=== PATIENT | male | born 1995 | race Caucasian/White ===

== ENCOUNTER 2017-12-07 12:31 | Emergency (ER) | payer OTHER ==
[~2017-12-07] VITALS: Ht 185.4 cm; Wt 98.9 kg
[~2017-12-07 12:31] MED LIST: CLARITIN10 M2; CLARITIN10 MG PO; HYDROCODON-ACE1 EAC7 PO; HYDROCODON-ACE1 EAC8 PO; IBUPROFEN 800800 M1 PO; ROBAXIN 750 MG750 M1 PO
[2017-12-07 13:12] LABS: ABSOLUTE BASOPHILS 0.1 thou/uL (0.0-0.2); ABSOLUTE EOSINOPHILS 0.1 thou/uL (0.0-0.7); ABSOLUTE LYMPHOCYTES 1.8 thou/uL (0.8-5.3); ABSOLUTE MONOCYTES 1.2 thou/uL (0.0-1.2); ABSOLUTE NEUTROPHILS 13.1 thou/uL (1.6-8.1); BASOPHILS 0.3 %; EOSINOPHILS 0.8 %; HEMATOCRIT 44.7 % (42.0-52.0); HEMOGLOBIN 15.2 gm/dL (14.0-18.0); LYMPHOCYTES 10.9 %; MCH 28.8 pg (26.0-34.0); MCV 84.8 fL (80.0-100.0); MONOCYTES 7.4 %; MPV 8.7 fl. (7.2-11.1); NUCLEATED RBCS 0 /100WBC; PLATELET COUNT* 343 thou/uL (150-400); POLYS 80.6 %; RBC 5.27 mil/uL (4.50-6.00); RDW-CV 13.7 % (10.5-14.5); WBC 16.2 thou/uL (4.0-11.0)
[2017-12-07 13:29] LABS: CREATININE 1.4 mg/dL (0.6-1.3); POTASSIUM 3.9 mmol/L (3.5-5.1)
[2017-12-07 13:34] LABS: ALBUMIN 4.7 g/dL (3.4-5.0); TOTAL BILIRUBIN 0.5 mg/dL (<0.1-1.0); TOTAL PROTEIN 8.2 g/dL (6.4-8.2)
[2017-12-07 14:50] LABS: URINE BILIRUBIN NEGATIVE (Negative); URINE BLOOD NEGATIVE (Negative); URINE CLARITY CLEAR; URINE COLOR YELLOW; URINE GLUCOSE-RANDOM NEGATIVE (Negative); URINE KETONES 2+ (Negative); URINE LEUKOCYTES-REFLEX NEGATIVE (Negative); URINE NITRITE-REFLEX NEGATIVE (Negative); URINE PROTEIN NEGATIVE (Negative); URINE SPECIFIC GRAVITY <= 1.005 (1.005-1.030); URINE UROBILINOGEN 0.2 E.U./dl (0.2-1.0)
[2017-12-07 16:14] LABS: APTT 29.8 Seconds (25.0-31.3); INR 1.1; PROTIME 10.7 Seconds (9.20-11.50)
[2017-12-07 16:15] VITALS: BP 119/61
--- NOTE | 2017-12-08 11:49 | EKG ---
[place] [address] ELECTROCARDIOGRAM REPORT Name: TIMOTHY BALLARD Room: [facility]#: [id number] Admission: 12/07/17 Attend Phys: Discharge: 12/07/17 Date of : [birth year] Report #: [id number] THIS REPORT FOR: //name// [facility] ED Test Date: 2017-12-07 Test Time: 15:20:04 Pat Name: TIMOTHY BALLARD Department: Room: Gender: M [employer] Person: Jasmin CLINE : 1995 Requested By: Treasure Claudio Order Number: [id number] Irasema MD: Chino Reyez Measurements Intervals Gra[place] Switch Rate: 109 P: 70 MA: 156 QRS: 62 QRSD: 106 T: -64 QT: 369 QTc: 498 Interpretive Statements Sinus tachycardia Probable left atrial enlargement Nonspecific T abnormalities, inferior leads Prolonged QT interval No previous ECG available for comparison Electronically Signed On 12-08-2017 11:49:31 CDT by Chino Reyez [email or web address] <ELECTRONICALLY SIGNED> By: Chino Reyez MD, [facility] 12/08/17 1149 1520 1520 Chino Reyez MD, FACC /EPI
== END 2017-12-07 16:15 | disposition home or self-care (01) ==
LOC: M.ERS 12:31
PROVIDERS: Physician Assistant
DX: I30.9 Acute pericarditis, unspecified (principal); D72.829 Elevated white blood cell count, unspecified; J98.2 Interstitial emphysema